=== PATIENT | male | born 1995 | race Caucasian/White ===

== ENCOUNTER 2018-01-18 17:28 | Inpatient (IN) | payer OTHER ==
[~2018-01-18] VITALS: Ht 168.3 cm; Wt 71.6 kg
--- NOTE | 2018-01-18 17:33 | EMERGENCY ROOM VISIT NOTE ---
History Report prepared by Karime: Summer Harris Under the Supervision of: Dr. Joey Montano M.D. First contact with patient: 17:27 Chief Complaint: MENTAL HEALTH EVALUATION Stated Complaint: MHID History of Present Illness The patient is a 22 year old male who presents to the Emergency Room with complaints of persistent suicidal and homicidal ideations beginning "a while ago." The patient was discharged 6 days ago following a 14 day stay in a psychiatric acute care facility. He denies any attempts to harm himself, overdoses, or cutting. The patient states he does not have access to any weapons. He reports he feels guilty, about his "whole life." The patient notes he has been sleeping and eating less than usual. He notes difficulty concentrating. The patient reports he takes Depakote and Invega. Source of History: patient Onset: "a while ago" Position: head Quality: other (suicidal and homicidal ideations) Timing: other (perisstent) Note: Associated symptom: feeling guilty, sleeping less than usual, eating less than usual. Denies: attempts to harm himself, overdoses, cutting. Review of Systems See HPI for pertinent positives and negatives. A total of ten systems were reviewed and were otherwise negative. Past Medical & Surgical Medical Problems: (1) Bipolar disorder (2) Sue Bipolar disorder Family History No pertinent family history stated. Social History Marital Status: single Current/Historical Medications Scheduled Divalproex Sodium (Depakote Er), 1,000 MG PO HS Trazodone Hcl (Trazodone), 150 MG PO HS [Invega Im Injection], Unknown Dose IM [id number] Allergies Coded Allergies: No Known Allergies (Unverified , 01/18/18) Physical Exam Vital Signs Date Time Temp Pulse Resp B/P (MAP) Pulse Ox O2 Delivery O2 Flow Rate FiO2 01/18/18 20:08 99 135/67 97 Room Air 01/18/18 17:34 37.5 87 16 137/80 98 Room Air Physical Exam Physical Exam GENERAL: He is oriented to person, place, and time. He appears well-developed and well-nourished. He does not appear distressed. Depressed affect. HENT: Exam performed. Head: Normocephalic and atraumatic. Right Ear: External ear normal. No mastoid tenderness. Left Ear: External ear normal. No mastoid tenderness. Mouth/Throat: The oropharynx is clear and moist. No trismus in the jaw. No dental abscesses or uvula swelling. No oropharyngeal exudate or tonsillar abscesses. EYES: Conjunctivae and EOM are normal. Pupils are equal, round, and reactive to light. Right eye exhibits no discharge. Left eye exhibits no discharge. No scleral icterus. NECK: Normal range of motion. Neck supple. No JVD present. No spinous process tenderness present. No carotid bruit present. No rigidity. No tracheal deviation and normal range of motion present. No Brudzinski's sign and no Kernig 's sign noted. CV: Normal rate, regular rhythm, normal heart sounds and intact distal pulses. There is no peripheral edema. Palpable radial pulses bue. PULM/CHEST: Effort normal and breath sounds normal. No respiratory distress. No stridor. He has no wheezes. He has no rales. Chest Wall: He exhibits no tenderness. ABD: The abdomen is soft. Bowel sounds are normal. He has no distension. No mass is present. There is no tenderness. There is no rebound, no guarding, no Bird's sign and no tenderness at McBurney's point. Rovsig negative. MUSC/SKEL: Normal range of motion. There is no peripheral edema, tenderness or deformity. LYMPH: No cervical adenopathy. NEURO: He is alert and oriented to person, place, and time. He has normal strength. No cranial nerve deficit or sensory deficit. Coordination and gait normal. GCS eye subscore is 4. GCS verbal subscore is 5. GCS motor subscore is 6. Cerebellar tests wnl. SKIN: Skin is warm and dry. He is not diaphoretic. PSYCH: Positive SI and HI. Medical Decision & Procedures Laboratory Results 01/18/18 17:52 Red Blood Count 5.04, Mean Corpuscular Volume 89.3, Mean Corpuscular Hemoglobin 31.0, Mean Corpuscular Hemoglobin Concent 34.7, Mean Platelet Volume 8.9, Neutrophils (%) (Auto) 71.1, Lymphocytes (%) (Auto) 11.9, Monocytes (%) (Auto) 14.3, Eosinophils (%) (Auto) 0.6, Basophils (%) (Auto) 0.5, Neutrophils # (Auto ) 4.46, Lymphocytes # (Auto) 0.75, Monocytes # (Auto) 0.90, Eosinophils # (Auto ) 0.04, Basophils # (Auto) 0.03 01/18/18 17:52 Test 01/18/18 17:38 01/18/18 17:52 01/18/18 22:10 Urine Color YELLOW Urine Appearance CLEAR (CLEAR) Urine pH 7.5 (4.5-7.5) Urine Specific Bradley 1.006 (1.000-1.030) Urine Protein NEG (NEG) Urine Glucose (UA) NEG (NEG) Urine Ketones NEG (NEG) Urine Occult Blood NEG (NEG) Urine Nitrite NEG (NEG) Urine Bilirubin NEG (NEG) Urine Urobilinogen NEG (NEG) Urine Leukocyte Esterase NEG (NEG) Urine Opiates Screen NEG (NEG) Urine Methadone, Qualitative NEG (NEG) Urine Barbiturates NEG (NEG) Urine Phencyclidine (PCP) Level NEG (NEG) Ur Amphetamine/Methamphetamine NEG (NEG) MDMA (Ecstasy) Screen NEG (NEG) Urine Benzodiazepines Screen NEG (NEG) Urine Cocaine Metabolite NEG (NEG) Urine Marijuana (THC) NEG (NEG) White Blood Count 6.28 K/uL (4.8-10.8) Red Blood Count 5.04 M/uL (4.7-6.1) Hemoglobin 15.6 g/dL (14.0-18.0) Hematocrit 45.0 % (42-52) Mean Corpuscular Volume 89.3 fL (80-100) Mean Corpuscular Hemoglobin 31.0 pg (25-34) Mean Corpuscular Hemoglobin Concent 34.7 g/dl (32-36) Platelet Count 130 K/uL (130-400) Mean Platelet Volume 8.9 fL (7.4-10.4) Neutrophils (%) (Auto) 71.1 % Lymphocytes (%) (Auto) 11.9 % Monocytes (%) (Auto) 14.3 % Eosinophils (%) (Auto) 0.6 % Basophils (%) (Auto) 0.5 % Neutrophils # (Auto) 4.46 K/uL (1.4-6.5) Lymphocytes # (Auto) 0.75 K/uL (1.2-3.4) Monocytes # (Auto) 0.90 K/uL (0.11-0.59) Eosinophils # (Auto) 0.04 K/uL (0-0.5) Basophils # (Auto) 0.03 K/uL (0-0.2) RDW Standard Deviation 41.3 fL (36.4-46.3) RDW Coefficient of Variation 12.9 % (11.5-14.5) Immature Granulocyte % (Auto) 1.6 % Immature Granulocyte # (Auto) 0.10 K/uL (0.00-0.02) Anion Gap 9.0 mmol/L (3-11) Est Creatinine Clear Calc Drug Dose 116.9 ml/min Estimated GFR () 136.4 Estimated GFR (Non- 117.6 BUN/Creatinine Ratio 9.9 (10-20) Calcium Level 8.8 mg/dl (8.5-10.1) Total Bilirubin 0.4 mg/dl (0.2-1) Direct Bilirubin 0.1 mg/dl (0-0.2) Aspartate Amino Transf (AST/SGOT) 10 U/L (15-37) Alanine Aminotransferase (ALT/SGPT) 14 U/L (12-78) Alkaline Phosphatase 77 U/L (45-117) Total Protein 7.5 gm/dl (6.4-8.2) Albumin 4.0 gm/dl (3.4-5.0) Thyroid Stimulating Hormone (TSH) 1.760 uIu/ml (0.300-4.500) Ethyl Alcohol mg/dL < 3.0 mg/dl (0-3) Laboratory results reviewed by me Medications Administered Medications (Trade) Dose Ordered Sig/Magdiel Route Start Time Stop Time Status Last Admin Dose Admin Lorazepam (Ativan Inj) 1 mg NOW STAT IM 01/18/18 17:45 01/18/18 17:46 DC 01/18/18 18:02 1 MG Divalproex Sodium (Depakote Extended Rel Tab) 1,000 mg NOW ONCE PO 01/18/18 22:15 01/18/18 22:16 DC 01/18/18 22:27 1,000 MG Trazodone HCl (Desyrel Tab) 150 mg NOW STAT PO 01/18/18 22:09 01/18/18 22:11 DC 01/18/18 22:26 150 MG ED Course 1732: The patient was evaluated in room A7. A complete history and physical exam was performed. 1745: Ordered Ativan Inj 1 mg IM. 2205: Vitals signs stable. Patient was cleared medically and accepted for admission by psychiatry. 2211: Ordered Depakote 1000mg PO, Trazodone 150 mg PO at the recommendation of psychiatry. Medical Decision 1732: The patient was evaluated in room A7. A complete history and physical exam was performed. 1745: Ordered Ativan Inj 1 mg IM. 2205: Vitals signs stable. Patient was cleared medically and accepted for admission by psychiatry. 2211: Ordered Depakote 1000mg PO, Trazodone 150 mg PO at the recommendation of psychiatry. Medication Reconcilliation Current Medication List: was personally reviewed by me Blood Pressure Screening Patient's blood pressure: Normal blood pressure Blood pressure disposition: Did not require urgent referral Impression Primary Impression: Suicidal ideation Scribe Attestation The scribe's documentation has been prepared under my direction and personally reviewed by me in its entirety. I confirm that the note above accurately reflects all work, treatment, procedures, and medical decision making performed by me. The chart was completed utilizing [employer] [place] Speech voice recognition software. Grammatical errors, random word insertions, pronoun errors, and incomplete sentences are an occasional consequence of this system due to software limitations, ambient noise, and hardware issues. Any formal questions or concerns about the content, text, or information contained within the body of this dictation should be directly addressed to the physician for clarification. Departure Information Dispostion Mental Health Acute Care Forms HOME CARE DOCUMENTATION FORM, IMPORTANT VISIT INFORMATION Patient Instructions My [facility] [address]
[2018-01-18] MEDS ORDERED: LORAZEPAM 2 MG/ML 1 ML VIAL IM STA (17:45)
[2018-01-18 18:04] LABS: BASO % 0.5 %; BASO ABS # 0.03 K/uL (0-0.2); EOS % 0.6 %; EOS ABS # 0.04 K/uL (0-0.5); HEMOGLOBIN 15.6 g/dL (14.0-18.0); LYMPH % 11.9 %; LYMPH ABS # 0.75 K/uL (1.2-3.4); MEAN CELL VOLUME 89.3 fL (80-100); MEAN CORPUSCULAR HGB CONC 34.7 g/dl (32-36); MEAN PLATELET VOLUME 8.9 fL (7.4-10.4); MONO % 14.3 %; NEUT % 71.1 %; NEUT ABS # 4.46 K/uL (1.4-6.5); PLATELET COUNT 130 K/uL (130-400); RED CELL DISTRIBUTION WIDTH CV 12.9 % (11.5-14.5); RED CELL DISTRIBUTION WIDTH SD 41.3 fL (36.4-46.3); WHITE BLOOD COUNT 6.28 K/uL (4.8-10.8)
[2018-01-18 18:32] LABS: CALCIUM 8.8 mg/dl (8.5-10.1); CREATININE 0.92 mg/dl (0.60-1.40); POTASSIUM 3.8 mmol/L (3.5-5.1); TOTAL PROTEIN 7.5 gm/dl (6.4-8.2)
[2018-01-18] MEDS ORDERED: DIVA500T3 PO (18:44)
[2018-01-18] MEDS ORDERED: DIVA500T59 PO (18:44)
[2018-01-18] MEDS ORDERED: TRAZ100T29 PO (18:46)
[2018-01-18] MEDS ORDERED: INVEGA IM (18:49)
[2018-01-18] MEDS ORDERED: NURSING VERBAL MED ORDER ONE (22:00)
[2018-01-18] MEDS ORDERED: TRAZODONE HCL 100 MG TAB PO STA (22:09)
[2018-01-18] MEDS ORDERED: SODIUM CHLORIDE 0.65% NA SOLN 45 ML (OCEAN) PRN (22:15)
[2018-01-18] MEDS ORDERED: ALUMINUM/MAGNESIUM SUSP 30 ML UDC PO PRN (22:15)
[2018-01-18] MEDS ORDERED: BISMUTH SUBSALICYLATE PER ML OMNICELL CHARGE PO PRN (22:15)
[2018-01-18] MEDS ORDERED: ACETAMINOPHEN 325 MG TAB PO PRN (22:15)
[2018-01-18] MEDS ORDERED: MAGNESIUM HYDROXIDE SUSP 30 ML UDC PO PRN (22:15)
[2018-01-18] MEDS ORDERED: DIVALPROEX 500 MG EXTENDED RELEASE TAB PO ONE (22:15)
[2018-01-18 23:03] VITALS: O2SAT 98
[2018-01-18 23:47] VITALS: BP 121/68; PULSE 82; TEMP 37.1; Ht 168.3 cm; Wt 71.6 kg
[2018-01-19 06:30] VITALS: BP_SYST 105; BP_SYST 110; BP_DIAS 63; BP_DIAS 71; PULSE 80; PULSE 91; TEMP 36.9
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
[2018-01-19] MEDS ORDERED: TRAZ1TAB49 PO (11:17)
[2018-01-19] MEDS ORDERED: PALI156I IM (11:18)
[2018-01-19] MEDS: hydrOXYzine HCL 25 MG TAB PO PRN (11:25)
[2018-01-19] MEDS: TRAZODONE HCL 50 MG TAB PO SCH (21:39)
[2018-01-19] MEDS: DIVALPROEX 500 MG EXTENDED RELEASE TAB PO SCH (21:40)
[2018-01-19] MEDS ORDERED: TRAZODONE HCL 100 MG TAB PO SCH (22:00)
[2018-01-19] MEDS ORDERED: NURSING VERBAL MED ORDER ONE (22:00)
[2018-01-20] MEDS: hydrOXYzine HCL 25 MG TAB PO PRN ×5 (05:33→21:06)
[2018-01-20 06:50] VITALS: BP_SYST 102; BP_SYST 108; BP_DIAS 68; BP_DIAS 70; PULSE 69; PULSE 83; TEMP 36.4
--- NOTE | 2018-01-20 13:51 | Psychiatric Progress Notes ---
Progress Note Date of Service Jan 20, 2018. Interval History 22-year-old single white male from [place] who has a history of schizoaffective disorder per [facility] records, and per his report numerous past psychiatric admissions and diagnoses for unclear reasons who is admitted voluntarily after he got off the bus in [place] and endorsed SI, HI, and auditory hallucinations. Chief Complaint "Are you going to help me out?". Subjective Patient was seen & assessed interval progress reviewed with Treatment Team. The patient is very concrete in his interactions, and very needy, repeatedly coming to the door with demands to be seen. He says that he is anxious because he doesn't know what's happening despite many contacts with staff and social workers today. Per social work, he had a phone meeting with his adoptive mother today, who restated that he cannot come to live with her as she does not feel safe having him in her home after he made threats against her. She said that she would be willing to come and provide him with a ride back to the [place] area, but had no other help to provide him. He is accepting of that and says that he plans to return to [place], attend all of his appts, work on finding someplace to stay, but in the meanwhile says that he is "OK" with living on the street, because at least he will be in a town that he knows. He denies SI/HI to me and says that he says that sometimes when he is anxious. We talk about how statements of suicide and homicide are received, and the seriousness of them. He was encouraged to look at his own behaviors and take responsibility which he says he is doing. Review of Systems Constitutional: No fever, No chills, No sweats, No weight loss, No weakness, No fatigue, No problem reported ENT: No hearing loss, No unusual epistaxis, No nasal symptoms, No sore throat, No tinnitus, No dental problems, No trouble swallowing, No problem reported Respiratory: No cough, No sputum, No wheezing, No shortness of breath, No dyspnea on exertion, No dyspnea at rest, No hemoptysis, No problem reported Cardiovascular: No chest pain, No orthopnea, No PND, No edema, No claudication , No palpitations, No problem reported Abdomen: No pain, No nausea, No vomiting, No diarrhea, No constipation, No GI bleeding, No problem reported Musculoskeletal: No joint pain, No muscle pain, No swelling, No calf pain, No problem reported Neurologic: No memory loss, No paralysis, No weakness, No numbness/tingling, No vertigo, No balance problems, No problem reported Psychiatric: + anxiety Integumentary: No rash, No itch, No new/changing skin lesions, No color change , No bleeding, No problem reported Sleep Information Total Hours of Sleep: 5.50 Meal Information Percent of Breakfast Consumed: 75 Percent of Lunch Consumed: 75 Percent of Dinner Consumed: 100 Mental Status Exam During interview pt is: alert and oriented, cooperative Appearance: appropriately dressed, disheveled Eye contact is: good Motor behavior is: steady gait & station Speech: normal in rate, rhythm & volume Affect: blunted, other (incongruent with stated mood) Mood is: other ("manic") Thought process: goal directed, concrete Thought content: reality based without delusions Suicidal thought are: denied Homicidal thoughts are: denied Hallucinations: denies auditory, denies visual Cognition: language grossly intact, other (memory impaired) Intelligence estimated to be: below average Insight: impaired Judgement: impaired Impression It seems clear that the patient has an agenda for someone, anyone, to find him housing, which is not possible in the short run. Social work has helped him to make phone calls to shelters and the only one that has not returned a call is the [facility] in [facility], but otherwise he has burned a lot of bridges and has little in the way of support left. He is willing to return to [place] where he has providers, and says that he is OK living on the street. We will await a call from the [facility], but if no availability, we have no short term solutions to his fpc problems and will consider discharge tomorrow with mother providing transportation. Plan (1) Mood disorder 01/19 - Differential includes schizoaffective disorder, bipolar disorder, depression, personality disorder, and malingering. Records indicate a diagnosis of schizoaffective disorder, with recent symptoms of ideas of reference and command auditory hallucinations, but to me he describes internal experience of thoughts, which he interprets as his own thoughts and sometimes God's voice, it is unclear to me if this rises to the level of true psychosis. - He does endorse some symptoms of depression, but this also overlaps with negative symptoms of a primary thought disorder. - Cannot rule out a component of malingering, as he clearly states that came he here looking for housing, did not have money for food, and did not like the jail services he had [place]. - Patient is asking for "new medications," but cannot identify the symptoms he wants treated. Advised him that he is on a long-acting injectable antipsychotic which he just received 1 week ago, so that will be in his system for the next several weeks. We will try to get additional information about his past medication trials. In the interim, continue Depakote 1000 mg at bedtime and trazodone 50 mg at bedtime. He reports his Invega dose was given 01/12/2018, so his next dose of 156 mg IM would be due 02/09/2018. -Reviewed records from [facility]. They did not send lab data, and have asked staff to follow up with requesting cholesterol levels and fasting glucose for monitoring on an atypical antipsychotic. - Contact mother who lives in [place] for collateral information and assistance with discharge planning/dispo. - Fasting labs done at [facility] 01/01/2018: Hemoglobin A1c within normal at 4.9, lipid profile showed elevated total cholesterol 202 and elevated LDL 123, rest within normal limits. - Patient is requesting assistance with housing, and advised him that we should start with talking with his family, and then explore shelters in the [place] area, as that is where he has outpatient care and wishes to return. Although [facility] had set him up with services in [place], he does not want to stay there. 01/20 - Not suicidal or homicidal but admits that he says that when he gets anxious - Willing to return to [place] where he has providers, and willing to live on the street until he is able to find housing Discharge / Aftercare Planning Primary Care Physician: Name: Dr. Clemons in [place] Therapist: Name: doesn't know [employer]ctor: Name: patient confused; thinks may have therapists in [facility] Visit Code E&M Code: 38587 Inventory Assets Strengths: willing for help Needs: Stable housing, compliance with outpatient treatment, increased structure/ employment/income Risk Factors Assessment Male: Yes : Yes /single/: Yes Higher / Fall in social status: No Health problems: No Mental Health Diagnoses: Yes Substance use disorders: No Previous attempt: Yes Previous psychiatric stay: Yes Hopelessness: Yes Smoker: No Protective Factors Assessment Restorationism beliefs: Yes : No Responsible for young children: No Employed: No Stable relationships: No Supportive family: No Good rapport with provider: No Data Vital Signs Last 24 Hrs: Date Time Temp Pulse Resp B/P (MAP) Pulse Ox O2 Delivery O2 Flow Rate FiO2 01/20/18 06:50 36.4 69 16 108/70 83 102/68 Meds Administered Last 24 Hrs: Meds Administered (Past 24Hrs) Medications (Trade) Dose Ordered Sig/Magdiel Route Start Time Stop Time Status Last Admin Dose Admin Lorazepam (Ativan Inj) 1 mg NOW STAT IM 01/18/18 17:45 01/18/18 17:46 DC 01/18/18 18:02 1 MG Divalproex Sodium (Depakote Extended Rel Tab) 1,000 mg NOW ONCE PO 01/18/18 22:15 01/18/18 22:16 DC 01/18/18 22:27 1,000 MG Trazodone HCl (Desyrel Tab) 150 mg NOW STAT PO 01/18/18 22:09 01/18/18 22:11 DC 01/18/18 22:26 150 MG Hydroxyzine HCl (Vistaril Tab) 25 mg Q4H PRN PO 01/18/18 22:15 02/17/18 22:14 01/20/18 10:00 25 MG Divalproex Sodium (Depakote Extended Rel Tab) 1,000 mg HS PO 01/19/18 22:00 02/18/18 21:59 01/19/18 21:40 1,000 MG Trazodone HCl (Desyrel Tab) 50 mg HS PO 01/19/18 22:00 02/18/18 21:59 01/19/18 21:39 50 MG Lab Results Last 24 Hrs: 01/18/18 17:52 Red Blood Count 5.04, Mean Corpuscular Volume 89.3, Mean Corpuscular Hemoglobin 31.0, Mean Corpuscular Hemoglobin Concent 34.7, Mean Platelet Volume 8.9, Neutrophils (%) (Auto) 71.1, Lymphocytes (%) (Auto) 11.9, Monocytes (%) (Auto) 14.3, Eosinophils (%) (Auto) 0.6, Basophils (%) (Auto) 0.5, Neutrophils # (Auto ) 4.46, Lymphocytes # (Auto) 0.75, Monocytes # (Auto) 0.90, Eosinophils # (Auto ) 0.04, Basophils # (Auto) 0.03 01/18/18 17:52 Test 01/18/18 17:38 01/18/18 17:52 01/18/18 22:10 Urine Color YELLOW Urine Appearance CLEAR (CLEAR) Urine pH 7.5 (4.5-7.5) Urine Specific [place] 1.006 (1.000-1.030) Urine Protein NEG (NEG) Urine Glucose (UA) NEG (NEG) Urine Ketones NEG (NEG) Urine Occult Blood NEG (NEG) Urine Nitrite NEG (NEG) Urine Bilirubin NEG (NEG) Urine Urobilinogen NEG (NEG) Urine Leukocyte Esterase NEG (NEG) Urine Opiates Screen NEG (NEG) Urine Methadone, Qualitative NEG (NEG) Urine Barbiturates NEG (NEG) Urine Phencyclidine (PCP) Level NEG (NEG) Ur Amphetamine/Methamphetamine NEG (NEG) MDMA (Ecstasy) Screen NEG (NEG) Urine Benzodiazepines Screen NEG (NEG) Urine Cocaine Metabolite NEG (NEG) Urine Marijuana (THC) NEG (NEG) White Blood Count 6.28 K/uL (4.8-10.8) Red Blood Count 5.04 M/uL (4.7-6.1) Hemoglobin 15.6 g/dL (14.0-18.0) Hematocrit 45.0 % (42-52) Mean Corpuscular Volume 89.3 fL (80-100) Mean Corpuscular Hemoglobin 31.0 pg (25-34) Mean Corpuscular Hemoglobin Concent 34.7 g/dl (32-36) Platelet Count 130 K/uL (130-400) Mean Platelet Volume 8.9 fL (7.4-10.4) Neutrophils (%) (Auto) 71.1 % Lymphocytes (%) (Auto) 11.9 % Monocytes (%) (Auto) 14.3 % Eosinophils (%) (Auto) 0.6 % Basophils (%) (Auto) 0.5 % Neutrophils # (Auto) 4.46 K/uL (1.4-6.5) Lymphocytes # (Auto) 0.75 K/uL (1.2-3.4) Monocytes # (Auto) 0.90 K/uL (0.11-0.59) Eosinophils # (Auto) 0.04 K/uL (0-0.5) Basophils # (Auto) 0.03 K/uL (0-0.2) RDW Standard Deviation 41.3 fL (36.4-46.3) RDW Coefficient of Variation 12.9 % (11.5-14.5) Immature Granulocyte % (Auto) 1.6 % Immature Granulocyte # (Auto) 0.10 K/uL (0.00-0.02) Anion Gap 9.0 mmol/L (3-11) Est Creatinine Clear Calc Drug Dose 116.9 ml/min Estimated GFR () 136.4 Estimated GFR (Non- 117.6 BUN/Creatinine Ratio 9.9 (10-20) Calcium Level 8.8 mg/dl (8.5-10.1) Total Bilirubin 0.4 mg/dl (0.2-1) Direct Bilirubin 0.1 mg/dl (0-0.2) Aspartate Amino Transf (AST/SGOT) 10 U/L (15-37) Alanine Aminotransferase (ALT/SGPT) 14 U/L (12-78) Alkaline Phosphatase 77 U/L (45-117) Total Protein 7.5 gm/dl (6.4-8.2) Albumin 4.0 gm/dl (3.4-5.0) Thyroid Stimulating Hormone (TSH) 1.760 uIu/ml (0.300-4.500) Ethyl Alcohol mg/dL < 3.0 mg/dl (0-3) Valproic Acid (Depakene) Level 69 mcg/ml (50-100)
[2018-01-20] MEDS: TRAZODONE HCL 50 MG TAB PO SCH (21:04)
[2018-01-20] MEDS: DIVALPROEX 500 MG EXTENDED RELEASE TAB PO SCH (21:04)
[2018-01-21] MEDS: hydrOXYzine HCL 25 MG TAB PO PRN ×2 (05:57→21:33)
[2018-01-21 06:42] VITALS: BP_SYST 103; BP_SYST 108; BP_DIAS 65; BP_DIAS 67; PULSE 66; PULSE 79; TEMP 36.8
--- NOTE | 2018-01-21 09:01 | Psychiatric Progress Notes ---
Progress Note Date of Service Jan 21, 2018. Interval History 22-year-old single white male from [place] who has a history of schizoaffective disorder per [facility] records, and per his report numerous past psychiatric admissions and diagnoses for unclear reasons who is admitted voluntarily after he got off the bus in [place] and endorsed SI, HI, and auditory hallucinations. Chief Complaint "Are you able to increase my sleeping medications, I also am really anxious". Subjective Patient was seen & assessed interval progress reviewed with Treatment Team. Staff report the patient is to be having a meeting today to discuss housing and treatment options. Pt was seen today to assess progress since admission. Pt states he did not sleep well and he is anxious. Pt is concrete and is not able to provide explanations for either. He states he finished a meeting and he is worried he will have to "go live on the streets". Pt states he is hopeful that "they will find me something in [place], are you able to help with that?" Pt states "the Vistaril doesn't work." It appears he has been receiving the medication rather regularly for anxiety. Pt is unable to specify what is causing the anxiety or any specific thoughts or feelings related to it. Pt states, "that stuff in the shots helps, the Valium shot." Pt was informed that these medications are not appropriate in this situation. Pt states his sleep has been restless, he denies thoughts of wanting to hurt himself or believing he would be better off . Review of Systems Psych: denies symptoms other than stated above Constitutional: denied Cardiovascular: denied GI: denied Neurologic: denied Remainder of 10 body systems also reviewed and denied other than noted above. Sleep Information Total Hours of Sleep: 7.75 Meal Information Percent of Breakfast Consumed: 75 Percent of Lunch Consumed: 75 Percent of Dinner Consumed: 100 Mental Status Exam During interview pt is: alert and oriented, cooperative (superficially) Appearance: appropriately dressed, disheveled Eye contact is: good Motor behavior is: steady gait & station Speech: normal in rate, rhythm & volume Affect: blunted, other (incongruent with stated mood) Mood is: other ("anxious" and "manic") Thought process: goal directed, concrete Thought content: reality based without delusions Suicidal thought are: denied Homicidal thoughts are: denied Hallucinations: denies auditory, denies visual Cognition: language grossly intact, other (memory impaired) Intelligence estimated to be: below average Insight: impaired Judgement: impaired Impression Pt continues to be preoccupied with his housing situation. He states this is causing anxiety. Informed that his requests for "those shots" [benzodiazepines ] were not appropriate for our inpatient setting or his condition, but continues to report being "anxious" and "manic". Discussed this provider's willingness for buspirone prn if he felt hydroxyzine to be ineffective. Risks, benefits, side effects discussed. Will order 5mg TID prn with expectation that once housing is resolved his anxiety level may decrease. Pt willing for trial of the medication. Will continue to be of assistance in regard to housing options; however, it is not likely he will meet criteria for inpatient treatment until concrete options can be solidified. Current plan for safe discharge and to decrease anxiety includes likely discharge on Wednesday. Plan (1) Mood disorder 01/19 - Differential includes schizoaffective disorder, bipolar disorder, depression, personality disorder, and malingering. Records indicate a diagnosis of schizoaffective disorder, with recent symptoms of ideas of reference and command auditory hallucinations, but to me he describes internal experience of thoughts, which he interprets as his own thoughts and sometimes God's voice, it is unclear to me if this rises to the level of true psychosis. - He does endorse some symptoms of depression, but this also overlaps with negative symptoms of a primary thought disorder. - Cannot rule out a component of malingering, as he clearly states that came he here looking for housing, did not have money for food, and did not like the nursing home services he had [place]. - Patient is asking for "new medications," but cannot identify the symptoms he wants treated. Advised him that he is on a long-acting injectable antipsychotic which he just received 1 week ago, so that will be in his system for the next several weeks. We will try to get additional information about his past medication trials. In the interim, continue Depakote 1000 mg at bedtime and trazodone 50 mg at bedtime. He reports his Invega dose was given 01/12/2018, so his next dose of 156 mg IM would be due 02/09/2018. -Reviewed records from [facility]. They did not send lab data, and have asked staff to follow up with requesting cholesterol levels and fasting glucose for monitoring on an atypical antipsychotic. - Contact mother who lives in [place] for collateral information and assistance with discharge planning/dispo. - Fasting labs done at [facility] 01/01/2018: Hemoglobin A1c within normal at 4.9, lipid profile showed elevated total cholesterol 202 and elevated LDL 123, rest within normal limits. - Patient is requesting assistance with housing, and advised him that we should start with talking with his family, and then explore shelters in the [place] area, as that is where he has outpatient care and wishes to return. Although [facility] had set him up with services in [place], he does not want to stay there. 01/20 - Not suicidal or homicidal but admits that he says that when he gets anxious - Willing to return to [place] where he has providers, and willing to live on the street until he is able to find housing 01/21 - Pt making several medication requests, most of which are not appropriate at this time - Will add prn buspirone 5mg to assist with anxiety, as he states hydroxyzine is not effective, may be able to d/c at discharge once housing is arranged Discharge / Aftercare Planning Primary Care Physician: Name: Dr. Clemons in [place] Therapist: Name: doesn't know [employer] Buyer: Name: patient confused; thinks may have therapists in [facility] Visit Code E&M Code: 72416 Inventory Assets Strengths: willing for help Needs: Stable housing, compliance with outpatient treatment, increased structure/ employment/income Risk Factors Assessment Male: Yes : Yes /single/: Yes Higher / Fall in social status: No Health problems: No Mental Health Diagnoses: Yes Substance use disorders: No Previous attempt: Yes Previous psychiatric stay: Yes Hopelessness: Yes Smoker: No Protective Factors Assessment Pentecostal beliefs: Yes : No Responsible for young children: No Employed: No Stable relationships: No Supportive family: No Good rapport with provider: No Data Vital Signs Last 24 Hrs: Date Time Temp Pulse Resp B/P (MAP) Pulse Ox O2 Delivery O2 Flow Rate FiO2 01/21/18 06:42 36.8 66 16 108/67 79 103/65 Meds Administered Last 24 Hrs: Meds Administered (Past 24Hrs) Medications (Trade) Dose Ordered Sig/Magdiel Route Start Time Stop Time Status Last Admin Dose Admin Divalproex Sodium (Depakote Extended Rel Tab) 1,000 mg HS PO 01/19/18 22:00 02/18/18 21:59 01/20/18 21:04 1,000 MG Trazodone HCl (Desyrel Tab) 50 mg HS PO 01/19/18 22:00 02/18/18 21:59 01/20/18 21:04 50 MG
--- NOTE | 2018-01-21 10:43 | Psych Management Progress Note ---
Psychiatry Miscellaneous Date of Service: Jan 21, 2018. Patient seen, MS assessed. Somewhat restless around the unit, brief responses to questions. Focussed on housing. Encouraged cooperation with care and treatment plan as outlined by allied health prescriber.
[2018-01-21] MEDS: TRAZODONE HCL 50 MG TAB PO SCH (21:30)
[2018-01-21] MEDS: DIVALPROEX 500 MG EXTENDED RELEASE TAB PO SCH (21:30)
[2018-01-22 06:51] VITALS: BP_SYST 103; BP_SYST 109; BP_DIAS 67; BP_DIAS 69; PULSE 102; PULSE 73; TEMP 36.7
--- NOTE | 2018-01-22 08:58 | Psychiatric Progress Notes ---
Progress Note Date of Service Jan 22, 2018. Interval History 22-year-old single white male from [place] who has a history of schizoaffective disorder per [facility] records, and per his report numerous past psychiatric admissions and diagnoses for unclear reasons who is admitted voluntarily after he got off the bus in [place] and endorsed SI, HI, and auditory hallucinations. Chief Complaint "I'm scared.". Subjective Patient was seen & assessed interval progress reviewed with nursing. The patient is aware of the plan for mother to pick up and delivery driver on Wednesday and possibly be able to spend one night at her house and then meet with the [facility] to see if he can join their program. He says that he is "scared" because he doesn' t know what he will do if they don't accept him. He says he is anxious and asking for more meds, saying that the Buspar has not been helpful. He is also asking for more trazodone saying he didn't sleep, but staff observed him to sleep for 9.5 hours, "I don't remember that.". He is loud in his interactions , unaware that he is disturbing others. He continues to deny SI, and denies both auditory and visual hallucinations. His interactions are very concrete, and short, but presents to staff and providers repeatedly during the day for his needs. He is attending to his ADL's, showering/eating/and attending groups. Review of Systems Constitutional: No fever, No chills, No sweats, No weight loss, No weakness, No fatigue, No problem reported ENT: No hearing loss, No unusual epistaxis, No nasal symptoms, No sore throat, No tinnitus, No dental problems, No trouble swallowing, No problem reported Respiratory: No cough, No sputum, No wheezing, No shortness of breath, No dyspnea on exertion, No dyspnea at rest, No hemoptysis, No problem reported Cardiovascular: No chest pain, No orthopnea, No PND, No edema, No claudication , No palpitations, No problem reported Abdomen: No pain, No nausea, No vomiting, No diarrhea, No constipation, No GI bleeding, No problem reported Musculoskeletal: No joint pain, No muscle pain, No swelling, No calf pain, No problem reported Neurologic: No memory loss, No paralysis, No weakness, No numbness/tingling, No vertigo, No balance problems, No problem reported Psychiatric: + anxiety Integumentary: No rash, No itch, No new/changing skin lesions, No color change , No bleeding, No problem reported Sleep Information Total Hours of Sleep: 9.50 Meal Information Percent of Breakfast Consumed: 100 Percent of Lunch Consumed: 100 Percent of Dinner Consumed: 100 Mental Status Exam During interview pt is: alert and oriented, cooperative Appearance: appropriately dressed Eye contact is: good Motor behavior is: steady gait & station Speech: normal in rate, rhythm & volume Affect: flat Mood is: anxious Thought process: goal directed, concrete Thought content: reality based without delusions Suicidal thought are: denied Homicidal thoughts are: denied Hallucinations: denies auditory, denies visual Cognition: language grossly intact, other (memory impaired) Intelligence estimated to be: below average Insight: limited Judgement: limited Impression Behavior remains appropriate. He is anxious about the future in view of the fact he has limited options for housing and support. We have submitted the application to the [facility] department [employer] which will be reviewed on Wednesday. Mother has agreed to transport back to [place] where he has services, and is checking with the other members of her household to see if they would be comfortable allowing him to stay there for one night until the [facility] referral can be completed. He is denying any kind of hallucination and will likely be able to discharge on Wednesday to mother. I do not think that he needs more medication , but will encourage staff to have him use behavioral coping strategies rather than just relying on a pill. Plan (1) Mood disorder 01/19 - Differential includes schizoaffective disorder, bipolar disorder, depression, personality disorder, and malingering. Records indicate a diagnosis of schizoaffective disorder, with recent symptoms of ideas of reference and command auditory hallucinations, but to me he describes internal experience of thoughts, which he interprets as his own thoughts and sometimes God's voice, it is unclear to me if this rises to the level of true psychosis. - He does endorse some symptoms of depression, but this also overlaps with negative symptoms of a primary thought disorder. - Cannot rule out a component of malingering, as he clearly states that came he here looking for housing, did not have money for food, and did not like the jail services he had [place]. - Patient is asking for "new medications," but cannot identify the symptoms he wants treated. Advised him that he is on a long-acting injectable antipsychotic which he just received 1 week ago, so that will be in his system for the next several weeks. We will try to get additional information about his past medication trials. In the interim, continue Depakote 1000 mg at bedtime and trazodone 50 mg at bedtime. He reports his Invega dose was given 01/12/2018, so his next dose of 156 mg IM would be due 02/09/2018. -Reviewed records from [facility]. They did not send lab data, and have asked staff to follow up with requesting cholesterol levels and fasting glucose for monitoring on an atypical antipsychotic. - Contact mother who lives in [place] for collateral information and assistance with discharge planning/dispo. - Fasting labs done at [facility] 01/01/2018: Hemoglobin A1c within normal at 4.9, lipid profile showed elevated total cholesterol 202 and elevated LDL 123, rest within normal limits. - Patient is requesting assistance with housing, and advised him that we should start with talking with his family, and then explore shelters in the [place] area, as that is where he has outpatient care and wishes to return. Although [facility] had set him up with services in [place], he does not want to stay there. 01/20 - Not suicidal or homicidal but admits that he says that when he gets anxious - Willing to return to [place] where he has providers, and willing to live on the street until he is able to find housing 01/21 - Pt making several medication requests, most of which are not appropriate at this time - Will add prn buspirone 5mg to assist with anxiety, as he states hydroxyzine is not effective, may be able to d/c at discharge once housing is arranged 01/22 - Encourage behavioral coping strategies for anxiety Discharge / Aftercare Planning Primary Care Physician: Name: Dr. Clemons in [place] Appointment Notes: As needed Psychiatrist: Name: Amy DAVIS Porsche Time of Appointment: 6:30pm Therapist: Name: NILDA Grant Date of Appointment: Jan 26, 2018 Time of Appointment: 8:30am Camp Nurse: Name: [facility] (Home Nursing Agency) Appointment Notes: ask for Ras Visit Code E&M Code: 04420 Inventory Assets Strengths: willing for help Needs: Stable housing, compliance with outpatient treatment, increased structure/ employment/income Risk Factors Assessment Male: Yes : Yes /single/: Yes Higher / Fall in social status: No Health problems: No Mental Health Diagnoses: Yes Substance use disorders: No Previous attempt: Yes Previous psychiatric stay: Yes Hopelessness: Yes Smoker: No Protective Factors Assessment Amish beliefs: Yes : No Responsible for young children: No Employed: No Stable relationships: No Supportive family: No Good rapport with provider: No Data Vital Signs Last 24 Hrs: Date Time Temp Pulse Resp B/P (MAP) Pulse Ox O2 Delivery O2 Flow Rate FiO2 01/22/18 06:51 36.7 73 16 109/69 102 103/67 Meds Administered Last 24 Hrs: Meds Administered (Past 24Hrs) Medications (Trade) Dose Ordered Sig/Magdiel Route Start Time Stop Time Status Last Admin Dose Admin Buspirone HCl (Buspar Tab) 5 mg TID PRN PO 01/21/18 11:45 02/20/18 11:44 01/22/18 06:48 5 MG Lab Results Last 24 Hrs: 01/18/18 17:52 Red Blood Count 5.04, Mean Corpuscular Volume 89.3, Mean Corpuscular Hemoglobin 31.0, Mean Corpuscular Hemoglobin Concent 34.7, Mean Platelet Volume 8.9, Neutrophils (%) (Auto) 71.1, Lymphocytes (%) (Auto) 11.9, Monocytes (%) (Auto) 14.3, Eosinophils (%) (Auto) 0.6, Basophils (%) (Auto) 0.5, Neutrophils # (Auto ) 4.46, Lymphocytes # (Auto) 0.75, Monocytes # (Auto) 0.90, Eosinophils # (Auto ) 0.04, Basophils # (Auto) 0.03 01/18/18 17:52 Test 01/18/18 17:38 01/18/18 17:52 01/18/18 22:10 Urine Color YELLOW Urine Appearance CLEAR (CLEAR) Urine pH 7.5 (4.5-7.5) Urine Specific [place] 1.006 (1.000-1.030) Urine Protein NEG (NEG) Urine Glucose (UA) NEG (NEG) Urine Ketones NEG (NEG) Urine Occult Blood NEG (NEG) Urine Nitrite NEG (NEG) Urine Bilirubin NEG (NEG) Urine Urobilinogen NEG (NEG) Urine Leukocyte Esterase NEG (NEG) Urine Opiates Screen NEG (NEG) Urine Methadone, Qualitative NEG (NEG) Urine Barbiturates NEG (NEG) Urine Phencyclidine (PCP) Level NEG (NEG) Ur Amphetamine/Methamphetamine NEG (NEG) MDMA (Ecstasy) Screen NEG (NEG) Urine Benzodiazepines Screen NEG (NEG) Urine Cocaine Metabolite NEG (NEG) Urine Marijuana (THC) NEG (NEG) White Blood Count 6.28 K/uL (4.8-10.8) Red Blood Count 5.04 M/uL (4.7-6.1) Hemoglobin 15.6 g/dL (14.0-18.0) Hematocrit 45.0 % (42-52) Mean Corpuscular Volume 89.3 fL (80-100) Mean Corpuscular Hemoglobin 31.0 pg (25-34) Mean Corpuscular Hemoglobin Concent 34.7 g/dl (32-36) Platelet Count 130 K/uL (130-400) Mean Platelet Volume 8.9 fL (7.4-10.4) Neutrophils (%) (Auto) 71.1 % Lymphocytes (%) (Auto) 11.9 % Monocytes (%) (Auto) 14.3 % Eosinophils (%) (Auto) 0.6 % Basophils (%) (Auto) 0.5 % Neutrophils # (Auto) 4.46 K/uL (1.4-6.5) Lymphocytes # (Auto) 0.75 K/uL (1.2-3.4) Monocytes # (Auto) 0.90 K/uL (0.11-0.59) Eosinophils # (Auto) 0.04 K/uL (0-0.5) Basophils # (Auto) 0.03 K/uL (0-0.2) RDW Standard Deviation 41.3 fL (36.4-46.3) RDW Coefficient of Variation 12.9 % (11.5-14.5) Immature Granulocyte % (Auto) 1.6 % Immature Granulocyte # (Auto) 0.10 K/uL (0.00-0.02) Anion Gap 9.0 mmol/L (3-11) Est Creatinine Clear Calc Drug Dose 116.9 ml/min Estimated GFR () 136.4 Estimated GFR (Non- 117.6 BUN/Creatinine Ratio 9.9 (10-20) Calcium Level 8.8 mg/dl (8.5-10.1) Total Bilirubin 0.4 mg/dl (0.2-1) Direct Bilirubin 0.1 mg/dl (0-0.2) Aspartate Amino Transf (AST/SGOT) 10 U/L (15-37) Alanine Aminotransferase (ALT/SGPT) 14 U/L (12-78) Alkaline Phosphatase 77 U/L (45-117) Total Protein 7.5 gm/dl (6.4-8.2) Albumin 4.0 gm/dl (3.4-5.0) Thyroid Stimulating Hormone (TSH) 1.760 uIu/ml (0.300-4.500) Ethyl Alcohol mg/dL < 3.0 mg/dl (0-3) Valproic Acid (Depakene) Level 69 mcg/ml (50-100)
[2018-01-22] MEDS: TRAZODONE HCL 50 MG TAB PO SCH (21:28)
[2018-01-22] MEDS: DIVALPROEX 500 MG EXTENDED RELEASE TAB PO SCH (21:28)
[2018-01-22] MEDS: hydrOXYzine HCL 25 MG TAB PO PRN (21:28)
[2018-01-23 06:48] VITALS: BP_SYST 100; BP_SYST 114; BP_DIAS 63; BP_DIAS 77; PULSE 108; PULSE 79; TEMP 36.7
--- NOTE | 2018-01-23 08:17 | Psychiatric Progress Notes ---
Progress Note Date of Service Jan 23, 2018. Interval History 22-year-old single white male from [place] who has a history of schizoaffective disorder per [facility] records, and per his report numerous past psychiatric admissions and diagnoses for unclear reasons who is admitted voluntarily after he got off the bus in [place] and endorsed SI, HI, and auditory hallucinations. Chief Complaint "My anxiety is still up.". Subjective Patient was seen & assessed interval progress reviewed with Nursing. The patient says that he remains anxious, with medications not helping. He is aware that his mother will pick him up tomorrow for discharge, and is worrying that his meds won't have arrived from [place], "If I don't have my meds, I' ll be right back in the hospital." He is also anxious about finding housing. Nursing reports that he has been attending programming with appropriate participation. He continues to deny SI, HI, aud/vis hallucinations, and side effects to medications. Review of Systems Constitutional: No fever, No chills, No sweats, No weight loss, No weakness, No fatigue, No problem reported ENT: No hearing loss, No unusual epistaxis, No nasal symptoms, No sore throat, No tinnitus, No dental problems, No trouble swallowing, No problem reported Respiratory: No cough, No sputum, No wheezing, No shortness of breath, No dyspnea on exertion, No dyspnea at rest, No hemoptysis, No problem reported Cardiovascular: No chest pain, No orthopnea, No PND, No edema, No claudication , No palpitations, No problem reported Abdomen: No pain, No nausea, No vomiting, No diarrhea, No constipation, No GI bleeding, No problem reported Musculoskeletal: No joint pain, No muscle pain, No swelling, No calf pain, No problem reported Neurologic: No memory loss, No paralysis, No weakness, No numbness/tingling, No vertigo, No balance problems, No problem reported Psychiatric: + anxiety Integumentary: No rash, No itch, No new/changing skin lesions, No color change , No bleeding, No problem reported Sleep Information Total Hours of Sleep: 9.50 Meal Information Percent of Breakfast Consumed: 100 Percent of Lunch Consumed: 60 Percent of Dinner Consumed: 100 Mental Status Exam During interview pt is: alert and oriented, cooperative Appearance: appropriately dressed Eye contact is: good Motor behavior is: steady gait & station Speech: normal in rate, rhythm & volume Affect: flat Mood is: anxious Thought process: goal directed, concrete Thought content: reality based without delusions Suicidal thought are: denied Homicidal thoughts are: denied Hallucinations: denies auditory, denies visual Cognition: language grossly intact, other (memory impaired) Intelligence estimated to be: below average Insight: limited Judgement: limited Impression The patient continues to deny SI/HI/hallucinations. He is anxious about his future and utilizing as many prns as he can have, but does little to cope behaviorally. I reviewed grounding exercises with him, which he said he understood. The plan is for discharge tomorrow, mother providing transportation. The long term in [place] is mailing his medication to mother 's address, but may need a short supply in the event they don't arrive promptly. Application has been faxed to the [facility] [employer] and he will have an interview there after discharge. Plan (1) Mood disorder 01/19 - Differential includes schizoaffective disorder, bipolar disorder, depression, personality disorder, and malingering. Records indicate a diagnosis of schizoaffective disorder, with recent symptoms of ideas of reference and command auditory hallucinations, but to me he describes internal experience of thoughts, which he interprets as his own thoughts and sometimes God's voice, it is unclear to me if this rises to the level of true psychosis. - He does endorse some symptoms of depression, but this also overlaps with negative symptoms of a primary thought disorder. - Cannot rule out a component of malingering, as he clearly states that came he here looking for housing, did not have money for food, and did not like the long term services he had [place]. - Patient is asking for "new medications," but cannot identify the symptoms he wants treated. Advised him that he is on a long-acting injectable antipsychotic which he just received 1 week ago, so that will be in his system for the next several weeks. We will try to get additional information about his past medication trials. In the interim, continue Depakote 1000 mg at bedtime and trazodone 50 mg at bedtime. He reports his Invega dose was given 01/12/2018, so his next dose of 156 mg IM would be due 02/09/2018. -Reviewed records from [facility]. They did not send lab data, and have asked staff to follow up with requesting cholesterol levels and fasting glucose for monitoring on an atypical antipsychotic. - Contact mother who lives in [place] for collateral information and assistance with discharge planning/dispo. - Fasting labs done at [facility] 01/01/2018: Hemoglobin A1c within normal at 4.9, lipid profile showed elevated total cholesterol 202 and elevated LDL 123, rest within normal limits. - Patient is requesting assistance with housing, and advised him that we should start with talking with his family, and then explore shelters in the [place] area, as that is where he has outpatient care and wishes to return. Although [facility] had set him up with services in [place], he does not want to stay there. 01/20 - Not suicidal or homicidal but admits that he says that when he gets anxious - Willing to return to [place] where he has providers, and willing to live on the street until he is able to find housing 01/21 - Pt making several medication requests, most of which are not appropriate at this time - Will add prn buspirone 5mg to assist with anxiety, as he states hydroxyzine is not effective, may be able to d/c at discharge once housing is arranged 01/22 - Encourage behavioral coping strategies for anxiety 01/23 - Encourage grounding exercises - Continue current meds and plan Discharge / Aftercare Planning Primary Care Physician: Name: Dr. Clemons in [place] Appointment Notes: As needed Psychiatrist: Name: Amy DAVIS Porsche Time of Appointment: 6:30pm Therapist: Name: Jessica Stanton Porsche Date of Appointment: Jan 26, 2018 Time of Appointment: 8:30am Skating Rink Ice Maker: Name: [facility] (Home Nursing Agency) Appointment Notes: ask for Ras for scheduling Visit Code E&M Code: 16851 Inventory Assets Strengths: willing for help Needs: Stable housing, compliance with outpatient treatment, increased structure/ employment/income Risk Factors Assessment Male: Yes : Yes /single/: Yes Higher / Fall in social status: No Health problems: No Mental Health Diagnoses: Yes Substance use disorders: No Previous attempt: Yes Previous psychiatric stay: Yes Hopelessness: Yes Smoker: No Protective Factors Assessment Gnosticism beliefs: Yes : No Responsible for young children: No Employed: No Stable relationships: No Supportive family: No Good rapport with provider: No Data Vital Signs Last 24 Hrs: Date Time Temp Pulse Resp B/P (MAP) Pulse Ox O2 Delivery O2 Flow Rate FiO2 01/23/18 06:48 36.7 79 16 100/63 108 114/77 Meds Administered Last 24 Hrs: Meds Administered (Past 24Hrs) Medications (Trade) Dose Ordered Sig/Magdiel Route Start Time Stop Time Status Last Admin Dose Admin Buspirone HCl (Buspar Tab) 5 mg TID PRN PO 01/21/18 11:45 02/20/18 11:44 01/22/18 21:30 5 MG Lab Results Last 24 Hrs: 01/18/18 17:52 Red Blood Count 5.04, Mean Corpuscular Volume 89.3, Mean Corpuscular Hemoglobin 31.0, Mean Corpuscular Hemoglobin Concent 34.7, Mean Platelet Volume 8.9, Neutrophils (%) (Auto) 71.1, Lymphocytes (%) (Auto) 11.9, Monocytes (%) (Auto) 14.3, Eosinophils (%) (Auto) 0.6, Basophils (%) (Auto) 0.5, Neutrophils # (Auto ) 4.46, Lymphocytes # (Auto) 0.75, Monocytes # (Auto) 0.90, Eosinophils # (Auto ) 0.04, Basophils # (Auto) 0.03 01/18/18 17:52 Test 01/18/18 17:38 01/18/18 17:52 01/18/18 22:10 Urine Color YELLOW Urine Appearance CLEAR (CLEAR) Urine pH 7.5 (4.5-7.5) Urine Specific [place] 1.006 (1.000-1.030) Urine Protein NEG (NEG) Urine Glucose (UA) NEG (NEG) Urine Ketones NEG (NEG) Urine Occult Blood NEG (NEG) Urine Nitrite NEG (NEG) Urine Bilirubin NEG (NEG) Urine Urobilinogen NEG (NEG) Urine Leukocyte Esterase NEG (NEG) Urine Opiates Screen NEG (NEG) Urine Methadone, Qualitative NEG (NEG) Urine Barbiturates NEG (NEG) Urine Phencyclidine (PCP) Level NEG (NEG) Ur Amphetamine/Methamphetamine NEG (NEG) MDMA (Ecstasy) Screen NEG (NEG) Urine Benzodiazepines Screen NEG (NEG) Urine Cocaine Metabolite NEG (NEG) Urine Marijuana (THC) NEG (NEG) White Blood Count 6.28 K/uL (4.8-10.8) Red Blood Count 5.04 M/uL (4.7-6.1) Hemoglobin 15.6 g/dL (14.0-18.0) Hematocrit 45.0 % (42-52) Mean Corpuscular Volume 89.3 fL (80-100) Mean Corpuscular Hemoglobin 31.0 pg (25-34) Mean Corpuscular Hemoglobin Concent 34.7 g/dl (32-36) Platelet Count 130 K/uL (130-400) Mean Platelet Volume 8.9 fL (7.4-10.4) Neutrophils (%) (Auto) 71.1 % Lymphocytes (%) (Auto) 11.9 % Monocytes (%) (Auto) 14.3 % Eosinophils (%) (Auto) 0.6 % Basophils (%) (Auto) 0.5 % Neutrophils # (Auto) 4.46 K/uL (1.4-6.5) Lymphocytes # (Auto) 0.75 K/uL (1.2-3.4) Monocytes # (Auto) 0.90 K/uL (0.11-0.59) Eosinophils # (Auto) 0.04 K/uL (0-0.5) Basophils # (Auto) 0.03 K/uL (0-0.2) RDW Standard Deviation 41.3 fL (36.4-46.3) RDW Coefficient of Variation 12.9 % (11.5-14.5) Immature Granulocyte % (Auto) 1.6 % Immature Granulocyte # (Auto) 0.10 K/uL (0.00-0.02) Anion Gap 9.0 mmol/L (3-11) Est Creatinine Clear Calc Drug Dose 116.9 ml/min Estimated GFR () 136.4 Estimated GFR (Non- 117.6 BUN/Creatinine Ratio 9.9 (10-20) Calcium Level 8.8 mg/dl (8.5-10.1) Total Bilirubin 0.4 mg/dl (0.2-1) Direct Bilirubin 0.1 mg/dl (0-0.2) Aspartate Amino Transf (AST/SGOT) 10 U/L (15-37) Alanine Aminotransferase (ALT/SGPT) 14 U/L (12-78) Alkaline Phosphatase 77 U/L (45-117) Total Protein 7.5 gm/dl (6.4-8.2) Albumin 4.0 gm/dl (3.4-5.0) Thyroid Stimulating Hormone (TSH) 1.760 uIu/ml (0.300-4.500) Ethyl Alcohol mg/dL < 3.0 mg/dl (0-3) Valproic Acid (Depakene) Level 69 mcg/ml (50-100)
[2018-01-23] MEDS: TRAZODONE HCL 50 MG TAB PO SCH (21:16)
[2018-01-23] MEDS: DIVALPROEX 500 MG EXTENDED RELEASE TAB PO SCH (21:16)
[2018-01-23] MEDS: hydrOXYzine HCL 25 MG TAB PO PRN (21:16)
[2018-01-24] MEDS ORDERED: DIVALPROEX 500 MG EXTENDED RELEASE TAB PO SCH
[2018-01-24] MEDS ORDERED: TRAZODONE HCL 50 MG TAB PO SCH
[2018-01-24 06:49] VITALS: BP_SYST 104; BP_SYST 106; BP_DIAS 65; BP_DIAS 72; PULSE 105; PULSE 74; TEMP 36.9
[2018-01-24] MEDS ORDERED: BSP5 PO (11:11)
--- NOTE | 2018-01-24 11:15 | Discharge Instructions ---
Discharge Information Report Includes Report will include the: Discharge Instructions & Summary Admission Admission Date / Time: Jan 18, 2018 at 22:05 Reason for Admission: Mood Disorder Nos Discharge Discharge Diagnosis / Problem: Mood Disorder NOS Condition at Discharge: improved Discharge Goals Goal(s): Improve function Activity Recommendations Activity Limitations: resume your previous activity . Instructions / Follow-Up Instructions / Follow-Up . SPECIAL CARE INSTRUCTIONS: 1. Follow through with your scheduled aftercare appointments. If unable to keep an appointment, please call to reschedule. 2. Take your medication only as prescribed. Medication should not be changed or stopped without the approval of your doctor. In the event of worsening symptoms or concerns about side effects, contact your doctor immediately. 3. Utilize new healthy coping skills, anger management skills, and stress management skills learned during your hospitalization. Journal feelings and process them with a support person. Identify stressors or situations that may result in relapse, deterioration or inappropriate behaviors and develop a plan to deal with those issues. 4. If your coping skills are ineffective and you are in crisis, contact your outpatient providers for direction. If unable to reach your providers, please call the CAN HELP LINE AT or go to the closest Emergency Room. 5. Avoid alcohol and un-prescribed drugs. 6. You have been provided with the Mental Health Advance Directives Pamphlet for your review. AFTERCARE APPOINTMENTS: * Please call your insurance company prior to your scheduled appointment to confirm your aftercare providers are covered. Take your insurance information to your appointments. . Discharge / Aftercare Planning Primary Care Physician: Name: Dr. Clemons in [place] Appointment Notes: As needed Psychiatrist: Name: Amy DAVIS Porsche Date of Appointment: Jan 25, 2018 Time of Appointment: 6:30pm Therapist: Name Of Therapist: NILDA Grant Date of Appointment: Jan 26, 2018 Time of Appointment: 8:30am Lumber Puller: Name: [facility] Appointment Notes: ask for Ras for scheduling Other: Name of Appointment #1: [place] Crisis Numbers , Name of Appointment #2: Shelters: [facility] , call 211 for referral Phone Number: Elmer Tobias: [phone]. [phone] Date of Appointment #2: Jan 25, 2018 Time of Appointment #2: 9:00am Appointment #2 Notes: Intake interview . Follow-Up Care Plan for Follow-Up Care: take medications as prescribed, attend appointments with psychiatric nurse practitioner, psychotherapist and heel caser as arranged. Current Hospital Diet Patient's current hospital diet: Regular Diet Discharge Diet Recommended Diet: Regular Diet Procedures Procedures Performed: No Pending Studies Pending Studies at Discharge: No Medical Emergencies . Who to Call and When: Medical Emergencies: For questions or emergencies related to your hospital stay, please contact the Inpatient Behavioral Health Unit at [phone]. A representative phlebotomy services is on-call 28/12 for the Behavioral Health Unit for emergencies At any time you feel your situation is an emergency, you may also call 911 immediately. . Non-Emergent Contact Non-Emergency issues call your: Primary Care Provider, Psychiatrist, Therapist Advance Directives Do You Have an Existing Mental: No Existing Living Will: No Existing Power of Rotary Cutter Operator: No Advance Directives Info Given: To Pt/S.O. Advance Directives Reason: Declines as Mental Health Visit. Discharge Summary Admission HPI Per the Admitting provider: According to ER records, the patient reports he was discharged from [facility] unit about 2 weeks ago, is homeless and had been staying in [place], but took the bus to [place] the day of presentation. He reported fearfulness and hopelessness, said he realized he had nothing, and endorsed suicidal thoughts to jump in front of traffic. He also endorsed homicidal thoughts, stating he did not want to hurt anyone, but if he did, at least the police would come and take him away. He said he had been diagnosed with "everything" in the past, and that he was started on Invega Sustenna at [facility], with the last injection 01/12/2018. He signed a release for his records from [facility]. He reported taking Depakote 1000 mg at bedtime, and his Depakote level was 69 at 2200 hrs. last night. He also reported being on Invega Sustenna , but does not know the dose, and trazodone 150 mg. Records from [facility] were reviewed: Patient was admitted there 12/30/2017 for suicidal thoughts and command auditory hallucinations on referral from his PCPs office in [place]. He endorsed a long-standing history of psychotic symptoms with and without mood symptoms. He denied any mood symptoms at the time of admission, but reported hearing voices telling him to kill himself by bashing his head and snapping his neck or jumping from a high window. He said he could not kill himself because he believed he was God, although he wanted to. He endorsed paranoia and believed people could read his thoughts. He also reported hearing voices telling him to hurt his family, and duty to warn was executed in the ER. He denied substance use. On exam, he exhibited psychomotor retardation, flat affect, tangential thoughts, delusional thinking and thought broadcasting. He was diagnosed with schizoaffective disorder, was taken off of olanzapine 7.5 mg twice daily and started on paliperidone, and Depakote was continued. He later agreed to the long acting injectable Invega Sustenna, and trazodone was ordered for poor sleep. Social work notes indicate that he stated he only made threats toward his family because his medications were not right, and that he wanted them changed. He reported having been admitted to a different psychiatric facility within the past month, and said he did not like the Zyprexa that was prescribed. He had outpatient providers at [facility] in [place]. He expressed concerns that his family would not allow him to return home "due to what happened," but no family meeting was held, and he was instead discharged to a chcf in [place]. The long term care social worker did attempt to contact his mother multiple times, and left messages. He was discharged 01/12/18 with referral to [facility] in [place], intake 01/12/18, and case management through [facility], no appointment given. Discharge medications were Depakote ER 1000 mg at bedtime, trazodone 50 mg at bedtime, and paliperidone 156 mg q. 28 days, no date given for next injection. His mother's address is listed as [place], and the patient told us that he was on a bus on his way to [place], but got off in [place] due to his symptoms. On my assessment, he states that up until December, he was living with his parents in [place], and at the end of December, went to his local ER for SI and HI, and was admitted to [facility]. His family wouldn't allow him to return home as "they didn't feel safe with me," so he was discharged to a homeless chcf ([facility]) in [place], as "it was the only place they could find." He says he stayed there for "14 days, no a couple days," and then he decided to take a bus back to [place]. He says he "started to get manic , anxiety, the thoughts were were coming back." He did not attend his outpatient appointment at [facility] "because they messed that up, the computers messed that up." He says his counselor, whose name he forgot, told him the appointment was postponed. He talked to his family who didn't feel safe having him come live with them, but encouraged him to return to the area, and was on the bus to get there when "I couldn't hold it any longer, my feelings." He reports "anxiety and manic and depression and just a bunch, just couldn't do it any more." He reports mood is "scared, manic," and says "manic" means "I don' t know which way is up, and I'm thinking about things, fantasizing about things , wishing I could go back home and things would be the same." He denies euphoric mood, sleep disturbance, appetite changes, increased energy or goal directed activity. He endorses feeling sad, guilty, wanting to cry but can't, low energy, and SI with thoughts to "snap my neck," but says he has "no idea" how he would do that. He also endorses thoughts to harm others, "just hurt people, anybody," but denies any specific person or specific plan/method, and denies intent. He states he would not act on these, has never been violent or aggressive in the past. He reports "anxiety is through the roof," reports pacing , worrying, "I feel like I'm going to jump out of my skin." Denies symptoms consistent with panic, OCD, PTSD, other than nightmares "of losing my family." He says he "threw everything away, my mental health." He endorses hearing a male voice, "I'm jehovah's witness, so I'm not sure if it's God, or if it's my voice." He denies hearing an actual voice, and says it's inside his head, "like my own voice, a personality, sometimes it says keep going, sometimes it says give up." States sometimes he thinks God is talking to him through songs to encourage him to keep going, or by the people he meets. Denies thought broadcasting/reading. Denies AVH currently, but says it's been going on "for a while," and cannot say if it has been years, months or weeks, "I can't remember." During the interview , he repeatedly interrupts and asks if we can find him housing or get him into a [facility] control [facility] hospital. He says he doesn't know what dose of Invega he is supposed to be on, doesn't know where he was supposed to go for follow up, and can't recall the name of his therapist in [place]. He says he has no money for food and was eating at a soup kitchen in [place]. Hospital Course (1) Mood disorder 01/19 - Differential includes schizoaffective disorder, bipolar disorder, depression, personality disorder, and malingering. Records indicate a diagnosis of schizoaffective disorder, with recent symptoms of ideas of reference and command auditory hallucinations, but to me he describes internal experience of thoughts, which he interprets as his own thoughts and sometimes God's voice, it is unclear to me if this rises to the level of true psychosis. - He does endorse some symptoms of depression, but this also overlaps with negative symptoms of a primary thought disorder. - Cannot rule out a component of malingering, as he clearly states that came he here looking for housing, did not have money for food, and did not like the chcf services he had [place]. - Patient is asking for "new medications," but cannot identify the symptoms he wants treated. Advised him that he is on a long-acting injectable antipsychotic which he just received 1 week ago, so that will be in his system for the next several weeks. We will try to get additional information about his past medication trials. In the interim, continue Depakote 1000 mg at bedtime and trazodone 50 mg at bedtime. He reports his Invega dose was given 01/12/2018, so his next dose of 156 mg IM would be due 02/09/2018. -Reviewed records from [facility]. They did not send lab data, and have asked staff to follow up with requesting cholesterol levels and fasting glucose for monitoring on an atypical antipsychotic. - Contact mother who lives in [place] for collateral information and assistance with discharge planning/dispo. - Fasting labs done at [facility] 01/01/2018: Hemoglobin A1c within normal at 4.9, lipid profile showed elevated total cholesterol 202 and elevated LDL 123, rest within normal limits. - Patient is requesting assistance with housing, and advised him that we should start with talking with his family, and then explore shelters in the [place] area, as that is where he has outpatient care and wishes to return. Although [facility] had set him up with services in [place], he does not want to stay there. 01/20 - Not suicidal or homicidal but admits that he says that when he gets anxious - Willing to return to [place] where he has providers, and willing to live on the street until he is able to find housing 01/21 - Pt making several medication requests, most of which are not appropriate at this time - Will add prn buspirone 5mg to assist with anxiety, as he states hydroxyzine is not effective, may be able to d/c at discharge once housing is arranged 01/22 - Encourage behavioral coping strategies for anxiety 01/23 - Encourage grounding exercises - Continue current meds and plan 01/24 -encouraged behavioral coping strategies for anxiety including diaphragmatic breathing -continue current meds and plan with discharge today, staying the night with mother and aiming for [facility] tomorrow -continue buspar as a prn 5mg dose up to tid at discharge -outpt appts psychiatric med managements Wednesday and therapy appt Wednesday Risk Factors Assessment Male: Yes : Yes /single/: Yes Higher / Fall in social status: No Health problems: No Mental Health Diagnoses: Yes Substance use disorders: No Previous attempt: Yes Previous psychiatric stay: Yes Hopelessness: Yes Smoker: No Protective Factors Assessment Synagogue beliefs: Yes : No Responsible for young children: No Employed: No Stable relationships: No Supportive family: No Good rapport with provider: No Day of Discharge Assessment Anxious about lack of clarity of availability at [facility] for Wednesday with pt weary of decompensation if not able to stay at such a chcf. He is without suicidal ideation, contracts for safety and working on behavioral management of his anxiety. he is finding buspar 5mg prn doses as calming and helps him feel less restless. He wonders if his restless is also a side effect of his Invega injections. He denied HI and is without manic symptoms. He is without AH or VH. He is considered appropriate for discharge at this time. He has appointments for tomorrow for med management and the next day for psychotherapy and has a heel caser, We are providing tonight's dose of trazodone and Depakote ER given awaiting his supply of those two meds in the mail Laboratory Test 01/18/18 17:38 01/18/18 17:52 01/18/18 22:10 Urine Color YELLOW Urine Appearance CLEAR Urine pH 7.5 Urine Specific [place] 1.006 Urine Protein NEG Urine Glucose (UA) NEG Urine Ketones NEG Urine Occult Blood NEG Urine Nitrite NEG Urine Bilirubin NEG Urine Urobilinogen NEG Urine Leukocyte Esterase NEG Urine Opiates Screen NEG Urine Methadone, Qualitative NEG Urine Barbiturates NEG Urine Phencyclidine (PCP) Level NEG Ur Amphetamine/Methamphetamine NEG MDMA (Ecstasy) Screen NEG Urine Benzodiazepines Screen NEG Urine Cocaine Metabolite NEG Urine Marijuana (THC) NEG White Blood Count 6.28 Red Blood Count 5.04 Hemoglobin 15.6 Hematocrit 45.0 Mean Corpuscular Volume 89.3 Mean Corpuscular Hemoglobin 31.0 Mean Corpuscular Hemoglobin Concent 34.7 Platelet Count 130 Mean Platelet Volume 8.9 Neutrophils (%) (Auto) 71.1 Lymphocytes (%) (Auto) 11.9 Monocytes (%) (Auto) 14.3 Eosinophils (%) (Auto) 0.6 Basophils (%) (Auto) 0.5 Neutrophils # (Auto) 4.46 Lymphocytes # (Auto) 0.75 Monocytes # (Auto) 0.90 Eosinophils # (Auto) 0.04 Basophils # (Auto) 0.03 RDW Standard Deviation 41.3 RDW Coefficient of Variation 12.9 Immature Granulocyte % (Auto) 1.6 Immature Granulocyte # (Auto) 0.10 Sodium Level 134 Potassium Level 3.8 Chloride Level 99 Carbon Dioxide Level 27 Anion Gap 9.0 Blood Urea Nitrogen 9 Creatinine 0.92 Est Creatinine Clear Calc Drug Dose 116.9 Estimated GFR () 136.4 Estimated GFR (Non- 117.6 BUN/Creatinine Ratio 9.9 Random Glucose 97 Calcium Level 8.8 Total Bilirubin 0.4 Direct Bilirubin 0.1 Aspartate Amino Transferase (AST) 10 Alanine Aminotransferase (ALT) 14 Alkaline Phosphatase 77 Total Protein 7.5 Albumin 4.0 Thyroid Stimulating Hormone (TSH) 1.760 Ethyl Alcohol mg/dL < 3.0 Valproic Acid Level 69 Total Time Total Time Spent (min): Greater than 30 minutes Total Time Included: examination of the patient, discharge planning, medication reconciliation Transition of Care Transition of care record: was reviewed with the patient Tobacco Cessation at Discharge Smoking Status: Never Smoker FDA approved Prescription: non-smoker
== END 2018-01-24 17:30 | disposition home or self-care (01) | DRG 885 ==
LOC: C.EDA 17:30 → C.MHU 22:05 → ENRESERV 22:15 → C.MHU 01-24 12:38
PROVIDERS: ADMIT Psychiatry & Neurology Child & Adolescent Psychiatry; ATTEND Psychiatry & Neurology Child & Adolescent Psychiatry
DX: F39 Unspecified mood [affective] disorder (principal); R44.0 Auditory hallucinations; Z59.0 Homelessness; Z79.899 Other long term (current) drug therapy